=== PATIENT | male | born 1975 | race Hispanic/Latino ===

== ENCOUNTER 2018-10-27 07:34 | Day surgery (SDC) | payer MEDICAID, MEDICARE ==
[2018-10-27] VITALS (7 sets, daily range): BP systolic 126–148; BP diastolic 79–95
[~2018-10-27] VITALS: Ht 177.8 cm; Wt 82.8 kg
[~2018-10-27 07:34] MED LIST: SODIUM CHLORIDE 0.9% 1000ML 1,000 ML IV ONE
[2018-10-27] MEDS ORDERED: OMEP40CA37 PO (08:52)
[2018-10-27] MEDS ORDERED: PROP20TA7 PO (08:52)
[2018-10-27] MEDS ORDERED: PROPOFOL 10 MG/ML 20ML VIAL IV ONE (09:16)
== END 2018-10-27 10:25 | disposition home or self-care (01) ==
LOC: ENDO 07:34 → DAH 07:37 → ENDO 10:25
PROVIDERS: ATTEND Internal Medicine
DX: I85.10 Secondary esophageal varices without bleeding (principal); K74.60 Unspecified cirrhosis of liver; K31.89 Other diseases of stomach and duodenum; E66.9 Obesity, unspecified; Z98.890 Other specified postprocedural states; Z79.899 Other long term (current) drug therapy; Z68.38 Body mass index [BMI] 38.0-38.9, adult
CPT/HCPCS: 43239; 43244; 88305; 88312; A4606; J2704; J7030